=== PATIENT | female | born 1945 | race Caucasian/White ===

== ENCOUNTER 2017-05-21 10:24 | Emergency (ER) | payer MEDICARE ==
[~2017-05-21] VITALS: Ht 170.2 cm; Wt 88.6 kg
[2017-05-21] MEDS ORDERED: ULTRAM50 MG PO (11:10)
[2017-05-21] MEDS ORDERED: LOSARTAN POTASS25 MG (11:10)
[2017-05-21] MEDS ORDERED: SODIUM CHLORIDE 0.9% 1000ML 1,000 ML IV SCH (11:15)
[2017-05-21] MEDS ORDERED: ONDANSETRON HCL INJ 2 MG/ML VIAL IV ONE (12:00)
[2017-05-21] MEDS ORDERED: KCL 20MEQ/.9 SOD CHL 1,000 ML IV ONE (14:45)
[2017-05-21] MEDS ORDERED: ONDANSETRON HCL 4 MG ORAL DISINTEGRATING TAB PO ONE (16:00)
[2017-05-21 16:52] VITALS: BP 135/74
[2017-05-21] MEDS ORDERED: LOSARTAN POTASS25 MG PO (17:00)
[2017-05-21] MEDS ORDERED: HYDROCHLOROTHIA25 MG PO (17:00)
[2017-05-21 17:01] VITALS: BP 135/74
[2017-05-21 20:00] VITALS: BP 146/68
[2017-05-22] VITALS (8 sets, daily range): BP systolic 124–190; BP diastolic 59–80
[2017-05-22] MEDS: HYDRALAZINE HCL 20 MG/ML VIAL IV PRN ×2 (00:03→16:35)
[2017-05-22] MEDS: MORPHINE SULFATE 2 MG/ML SYR IV PRN (00:03)
[2017-05-22 06:48] LABS: BASOPHILS % 0.6 % (0.0-1.0); EOSINOPHILS # (AUTO) 0.1 (0.0-0.4); EOSINOPHILS % 2.4 % (0.0-6.0); HEMOGLOBIN 11.8 g/dL (12.0-16.0); LYMPHOCYTES # (AUTO) 2.1 (1.0-3.2); LYMPHOCYTES % 39.1 % (18.0-39.1); MEAN CORPUSCULAR HEMOGLOBIN 31.1 pg (28-32); MEAN CORPUSCULAR HGB CONC 33.7 g/dL (31-35); MEAN CORPUSCULAR VOLUME 92.3 fL (81-99); MONOCYTES # (AUTO) 0.5 (0.2-0.8); MONOCYTES % 9.3 % (4.4-11.3); NEUTROPHILS # (AUTO) 2.6 (2.1-6.9); PLATELET COUNT 185 x10e3/uL (140-360); RED BLOOD COUNT 3.79 x10e6/uL (3.6-5.1); RED CELL DISTRIBUTION WIDTH 13.2 % (11.7-14.4)
[2017-05-22 07:14] LABS: ANION GAP 6.9 mmol/L (8-16); BLOOD UREA NITROGEN 8 mg/dL (7-26); BUN/CREATININE RATIO 11 (6-25); CALCIUM 8.5 mg/dL (8.4-10.2); CARBON DIOXIDE 25 mmol/L (22-29); CHLORIDE 112 mmol/L (98-107); CREATININE, SERUM 0.71 mg/dL (0.57-1.11); EST GLOMERULAR FILTRATION RATE > 60 ML/MIN (60-); GLUCOSE 118 mg/dL (74-118); POTASSIUM 3.9 mmol/L (3.5-5.1); SODIUM 140 mmol/L (136-145)
[2017-05-22] MEDS: LOSARTAN POTASSIUM 25 MG TAB PO SCH (08:10)
[2017-05-22] MEDS: HYDROCHLOROTHIAZIDE 25 MG TAB PO SCH (08:10)
[2017-05-22 12:39] LABS: ALBUMIN 3.1 g/dL (3.5-5.0); BILIRUBIN,DIRECT 0.2 mg/dL (0.0-5.0)
--- NOTE | 2017-05-22 14:49 | History and Physical ---
PRIMARY CARE PROVIDER: Dr. Sherwin Cramer at the [facility]. CHIEF COMPLAINT: Right-sided abdominal pain. HISTORY OF PRESENT ILLNESS: Ms. Cao is a 72-year-old lady who has had right-sided abdominal pain that started in the right lower quadrant. Has radiated some to the right flank and right upper quadrant for the last 5 or 6 days. She was seen in clinic at the [facility] a couple of days ago. Had x-rays and lab work done. Has not followed up. Was seen yesterday at the urgent care [facility] where she had a CT scan of the abdomen which was reportedly normal. The patient was admitted from there for observation due to the severe pain with nausea and vomiting. REVIEW OF SYSTEMS: She denies fever, chills or weight loss. She denies sinus congestion or sore throat. She denies chest pain or palpitations. She denies shortness of breath, wheezing or cough. She has abdominal pain on the right side mainly in the right lower quadrant but also radiating into the right upper quadrant and right flank with some nausea and vomiting. She denies diarrhea or melena. She denies dysuria. She denies joint pain or swelling, although she has had a previous back injury many years ago. She denies bleeding or bruising. She denies headache, vertigo or loss of consciousness. She denies depression, agitation, homicidal or suicidal ideation. PAST MEDICAL HISTORY: Significant for hypertension for which she takes losartan 50 mg daily and hydrochlorothiazide 12.5 mg daily. She has a history of a cholecystectomy and hysterectomy. The cholecystectomy was done in 2014, the hysterectomy many years ago and a right total knee replacement done a few years ago. ALLERGIES: SHE HAS A STATED ALLERGY TO CODEINE. FAMILY HISTORY: Remarkable for hypertension. SOCIAL HISTORY: The patient is . Trinidadian is her primary language. She does not smoke, drink or use illegal drugs. She is generally independently functioning. PHYSICAL EXAMINATION PSYCHIATRIC: She is alert and oriented times 3 with normal mood and affect. CONSTITUTIONAL: She has a normal body habitus. She is in no acute distress. VITAL SIGNS: Blood pressure 154/70. Pulse 74 and regular. Respiratory rate 18. O2 sat 99%. HEENT: Head is atraumatic. Her eyes are anicteric with clear conjunctivae. Ears and nares are without erythema or discharge. Oropharynx is clear. NECK: Supple, no mass or thyromegaly. LYMPHATIC SYSTEM: She has no palpable cervical, axillary or inguinal adenopathy. CARDIOVASCULAR: Her heart has a regular rate and rhythm without murmur or extra heart sound. She has no carotid bruit. She has no peripheral edema. She has palpable dorsal pedal pulses. RESPIRATORY: The lungs are clear to auscultation and percussion with normal respiratory effort. GASTROINTESTINAL: Abdomen is soft. She has very minimal to mild tenderness in the right lower quadrant without rebound or guarding. No tenderness in the right upper quadrant or the right flank. No tenderness on the left side of the abdomen. She has normal bowel sounds present, and no hepatosplenomegaly or masses are palpable. CUTANEOUS: Her skin is warm and dry to touch with no rash or skin breakdown. MUSCULOSKELETAL: Her joints are in normal alignment without erythema or swelling. She has no calf tenderness. NEUROLOGIC: Exam is nonfocal with intact cranial nerves and no motor or sensory deficits. DIAGNOSTIC STUDIES: CT scan of the abdomen was reportedly normal. Her EKG is normal. Her chemistry shows normal electrolytes, CO2 25, creatinine 0.71 and BUN 8 for a normal GFR. Calcium 8.5. Glucose 118. Her CBC shows a white count of 5.37 with a normal differential. Hemoglobin 11.8, hematocrit 35.0 and platelet count 185,000. IMPRESSION AND PLAN 1. Right lower quadrant abdominal pain with a negative CT scan. Possibly radicular pain from a previous lumbar back injury. Possible herniated disk with radiculopathy. Will check an MRI scan of her spine to address that. Will also have our radiologist review the CT scan of her abdomen. 2. Anemia, normocytic anemia. Will check fecal occult blood test and iron levels. 3. Hypertension. Continue losartan and hydrochlorothiazide plus p.r.n. IV hydralazine. 4. For prophylaxis, the patient will be using SCDs for DVT prophylaxis and Pepcid for GI prophylaxis. Job#: [id number]
[2017-05-22] MEDS: FAMOTIDINE 20 MG TAB PO SCH (16:42)
[2017-05-22] MEDS: ACETAMINOPHEN 325 MG TAB PO PRN (20:10)
[2017-05-23] VITALS (8 sets, daily range): BP systolic 121–148; BP diastolic 59–78
[2017-05-23 06:29] LABS: BASOPHILS # (AUTO) 0.1 (0.0-0.1); BASOPHILS % 0.9 % (0.0-1.0); EOSINOPHILS # (AUTO) 0.2 (0.0-0.4); EOSINOPHILS % 3.1 % (0.0-6.0); HEMATOCRIT 36.7 % (34.2-44.1); HEMOGLOBIN 12.2 g/dL (12.0-16.0); LYMPHOCYTES # (AUTO) 2.2 (1.0-3.2); LYMPHOCYTES % 38.6 % (18.0-39.1); MEAN CORPUSCULAR HEMOGLOBIN 30.7 pg (28-32); MEAN CORPUSCULAR HGB CONC 33.2 g/dL (31-35); MEAN CORPUSCULAR VOLUME 92.2 fL (81-99); MONOCYTES # (AUTO) 0.6 (0.2-0.8); MONOCYTES % 10.7 % (4.4-11.3); NEUTROPHILS # (AUTO) 2.7 (2.1-6.9); NEUTROPHILS % 46.5 % (38.7-80.0); PLATELET COUNT 187 x10e3/uL (140-360); RED BLOOD COUNT 3.98 x10e6/uL (3.6-5.1); RED CELL DISTRIBUTION WIDTH 13.3 % (11.7-14.4)
[2017-05-23 06:47] LABS: ANION GAP 8.6 mmol/L (8-16); BLOOD UREA NITROGEN 11 mg/dL (7-26); BUN/CREATININE RATIO 14 (6-25); CALCIUM 8.8 mg/dL (8.4-10.2); CARBON DIOXIDE 27 mmol/L (22-29); CHLORIDE 106 mmol/L (98-107); CREATININE, SERUM 0.78 mg/dL (0.57-1.11); EST GLOMERULAR FILTRATION RATE > 60 ML/MIN (60-); GLUCOSE 126 mg/dL (74-118); LIPASE 30 U/L (8-78); MAGNESIUM 1.8 MG/DL (1.3-2.1); POTASSIUM 3.6 mmol/L (3.5-5.1); SODIUM 138 mmol/L (136-145)
[2017-05-23 07:07] LABS: THYROID STIMULATING HORMONE 1.569 uIU/mL (0.350-4.940)
[2017-05-23] MEDS: FAMOTIDINE 20 MG TAB PO SCH ×2 (07:42→16:20)
[2017-05-23] MEDS: HYDROCHLOROTHIAZIDE 25 MG TAB PO SCH (09:25)
[2017-05-23] MEDS: LOSARTAN POTASSIUM 25 MG TAB PO SCH (09:25)
[2017-05-23] MEDS: ACETAMINOPHEN 325 MG TAB PO PRN (13:41)
[2017-05-23] MEDS ORDERED: GABAPENTIN 300 MG CAP PO ONE (16:00)
--- NOTE | 2017-05-23 18:25 | Diagnostic Imaging Report ---
History: Back pain Comparison studies: None Technique: Sagittal, coronal and axial T2 , sagittal T1 and IR, axial spin density oblique. Intravenous contrast: None Findings: Number of lumbar vertebral bodies:5 Alignment: Mild grade 1 retrolisthesis of L5 over S1.No scoliosis. Soft tissues: No T2 hyperintense inflammatory changes. 2 cm left adnexal cyst, better seen on recent CT abdomen. Paraspinal muscles: Mild fatty infiltration of the lumbosacral paraspinal musculature.. Lower thoracic cord:Normal in signal and morphology. The tip of the conus is at L1. Cauda equina: No masses. No arachnoiditis. Vertebrae: Normal in height and signal intensity. No compression fractures, infection or neoplasm. Degenerative changes: Partially visualized right central disc protrusion at T12-L1 with impression on the anterior thecal sac results in mild canal stenosis. L1-L2: No abnormalities. L2-L3: No abnormalities. L3-L4: Mild bilateral facet hypertrophy with trace of fluid at the facet joints. Patent canal and foramina. L4-L5: Mild diffuse disc bulge, moderate facet hypertrophy and ligamentum flavum thickening results in mild canal stenosis without significant foraminal narrowing. Trace of fluid at the bilateral facet joint with mild periarticular inflammatory changes. L5-S1: Disc degeneration with decreased T2 signal and intervertebral space. Mild diffuse disc bulge mild facet hypertrophy without significant canal stenosis, mild left and moderate right foraminal narrowing. Additional findings: None IMPRESSION: Moderate right and mild left foraminal narrowing at L5-S1 secondary to degenerative changes. Moderate facet hypertrophy with periarticular inflammatory changes and synovitis at L4-L5. Right central disc protrusion at T12-L1 results in mild canal stenosis and impression of the anterior thecal sac. Other mild degenerative changes as described above Signed by: DR Jm Jha M.D. on 05/23/2017 6:21 PM
[2017-05-24 00:16] VITALS: BP 123/60
[2017-05-24 04:00] VITALS: BP 124/67
[2017-05-24] MEDS: MORPHINE SULFATE 2 MG/ML SYR IV PRN (05:34)
[2017-05-24 06:17] LABS: BASOPHILS % 0.6 % (0.0-1.0); EOSINOPHILS # (AUTO) 0.2 (0.0-0.4); EOSINOPHILS % 2.7 % (0.0-6.0); HEMATOCRIT 37.6 % (34.2-44.1); HEMOGLOBIN 12.7 g/dL (12.0-16.0); LYMPHOCYTES # (AUTO) 1.9 (1.0-3.2); MEAN CORPUSCULAR HEMOGLOBIN 30.6 pg (28-32); MEAN CORPUSCULAR HGB CONC 33.8 g/dL (31-35); MEAN CORPUSCULAR VOLUME 90.6 fL (81-99); MONOCYTES # (AUTO) 0.6 (0.2-0.8); MONOCYTES % 10.2 % (4.4-11.3); NEUTROPHILS # (AUTO) 3.5 (2.1-6.9); NEUTROPHILS % 56.2 % (38.7-80.0); PLATELET COUNT 188 x10e3/uL (140-360); RED BLOOD COUNT 4.15 x10e6/uL (3.6-5.1); RED CELL DISTRIBUTION WIDTH 13.2 % (11.7-14.4)
[2017-05-24 06:33] LABS: ANION GAP 10.6 mmol/L (8-16); BLOOD UREA NITROGEN 13 mg/dL (7-26); BUN/CREATININE RATIO 17 (6-25); CALCIUM 9.1 mg/dL (8.4-10.2); CARBON DIOXIDE 26 mmol/L (22-29); CHLORIDE 107 mmol/L (98-107); CREATININE, SERUM 0.78 mg/dL (0.57-1.11); EST GLOMERULAR FILTRATION RATE > 60 ML/MIN (60-); GLUCOSE 137 mg/dL (74-118); POTASSIUM 3.6 mmol/L (3.5-5.1); SODIUM 140 mmol/L (136-145)
[2017-05-24 08:00] VITALS: BP 138/78
[2017-05-24] MEDS ORDERED: GABAPENTIN 300 MG CAP PO SCH (09:00)
[2017-05-24] MEDS ORDERED: CYANOCOBALAMIN 1,000 MCG TAB PO SCH (09:00)
[2017-05-24] MEDS: FAMOTIDINE 20 MG TAB PO SCH (09:52)
[2017-05-24] MEDS: LOSARTAN POTASSIUM 25 MG TAB PO SCH (09:53)
[2017-05-24] MEDS: HYDROCHLOROTHIAZIDE 25 MG TAB PO SCH (09:53)
[2017-05-24] MEDS ORDERED: GABAPENTIN300 MG PO (14:48)
[2017-05-24] MEDS ORDERED: MOTRIN200 MG PO (14:48)
[2017-05-24] MEDS ORDERED: CYCLOBENZAPRINE5 MG PO (14:48)
[2017-05-24] MEDS ORDERED: VITAMIN B-121000 MCG PO (14:48)
[2017-05-24] MEDS ORDERED: FAMOTIDINE20 MG PO (14:48)
[2017-05-24] MEDS ORDERED: IBUPROFEN 600 MG TAB PO NR (15:00)
--- NOTE | 2017-05-24 21:26 | Discharge Summary ---
ADMISSION DIAGNOSES: 1. Right lower quadrant abdominal pain. 2. Anemia. 3. Hypertension. DISCHARGE DIAGNOSES: 1. Right lower quadrant abdominal pain. 2. Anemia. 3. Hypertension. 4. Right lower quadrant pain, resolved. HISTORY: Patient has a history of hypertension, cholecystectomy, hysterectomy, and right total knee replacement. HOSPITAL COURSE: A 72-year-old female who had right-sided abdominal pain that started in the right lower quadrant. some of the pain radiated to the right flank for the last 5 or 6 days. She was seen in the [facility] a couple of days ago, had x-rays and lab work done and has not followed up with those results. She then went to an urgent care prior to coming to [facility] where she had a CAT scan of the abdomen done. After getting reports of the CAT scan, everything was negative. The patient was then admitted to [facility] for obs due to severe pain with nausea and vomiting. Upon seeing the patient at [facility], the patient's nausea and vomiting had resolved and all that was left was the pain, which she described in her hip that radiated to the back on the right side. MRI was completed, which showed moderate right and mild left foraminal narrowing at L5-S1 secondary to degenerative changes and moderate facet hypertrophy with periarticular inflammatory changes and synovitis at L4-L5 with the right central disk protrusion at T12-L1 results in mild canal stenosis and impression of the anterior thecal sac. Vital signs stable. Labs within normal limits. Patient was discharged home on Flexeril, gabapentin, ibuprofen. Per Dr. Lubin's request, patient is to follow up with ortho if these medications do not help the pain. Son was at bedside throughout discharge, so he is aware of the recommendations as well. Patient will follow up with primary care in 1 to 2 weeks. Dictated by Yoli Hurt NP MAHIN LUBIN MD Job#: [id number]
== END 2017-05-24 15:45 | disposition home or self-care (01) ==
LOC: FSED 10:24 → ERHOLD 14:55 → IMCU 16:06
PROVIDERS: ADMIT Internal Medicine; ATTEND Internal Medicine
DX: R10.31 Right lower quadrant pain (principal); I10 Essential (primary) hypertension; M51.36 Other intervertebral disc degeneration, lumbar region; M51.26 Other intervertebral disc displacement, lumbar region; D64.9 Anemia, unspecified
CPT/HCPCS: 36415 ×3; 72148; 80048 ×3; 80076; 82607; 82746; 83540; 83690; 83735; 84443; 84466; 85025 ×3; 93005; 97116; 97162; 99284; G0378 ×4; G8978; G8979; J0360 ×2; J2270 ×2; J2405; J7030 ×2

== ENCOUNTER 2017-08-08 12:39 | Inpatient (IN) | payer MEDICARE ==
[~2017-08-08] VITALS: Ht 170.2 cm; Wt 89.8 kg
[~2017-08-08 12:39] MED LIST: CYCLOBENZAPRINE5 MG PO; FAMOTIDINE20 MG PO; GABAPENTIN300 MG PO; HYDROCHLOROTHIA25 MG PO; LOSARTAN POTASS25 MG; LOSARTAN POTASS25 MG PO; MOTRIN200 MG PO; ULTRAM50 MG PO; VITAMIN B-121000 MCG PO
--- OUTSIDE RECORDS SUMMARY | 2017-08-08 12:42 | XMS REPORT ---
Author Author [facility] Address Unknown Phone Unavailable Care Team Providers Care Software Sales Consultant Name Role Phone LILIAMPADILLAMAHIN Unavailable Unavailable Problems This patient has no known problems. Allergies, Adverse Reactions, Alerts This patient has no known allergies or adverse reactions. Medications This patient has no known medications. Results Test Description Test Time Test Comments Text Results Atomic Results Result Comments MRI SPINE LUMBAR WO [facility] [address] [address] Patient Name: KAYLEIGH REZA MR #: [id number] : 1945 Age/Sex: 72/F Req # : [id number] Adm Physician: MAHIN RICKETTS MD Ordered by: MAHIN RICKETTS MD Report #: [id number] Location: [facility] Room/Bed: [address] [place] [address] _ Procedure: [id number] MRI/MRI SPINE LUMBAR WO Exam Date: Exam Time: REPORT STATUS: Signed History: Back pain Comparison studies: None Technique: Sagittal, coronal and axial T2 , sagittal T1 and IR, axial spin density oblique. Intravenous contrast: None Findings: Number of lumbar vertebral bodies:5 Alignment: Mild grade 1 retrolisthesis of L5 over S1.No scoliosis. Soft tissues: No T2 hyperintense inflammatory changes. 2 cm left adnexal cyst, better seen on recent CT abdomen. Paraspinal muscles: Mild fatty infiltration of the lumbosacral paraspinal musculature.. Lower thoracic cord:Normal in signal and morphology. The tip of the conus is at L1. Cauda equina: No masses. No arachnoiditis. Vertebrae: Normal in height and signal intensity. No compression fractures, infection or neoplasm. Degenerative changes: Partially visualized right central disc protrusion at T12-L1 with impression on the anterior thecal sac results in mild canal stenosis. L1-L2: No abnormalities. L2-L3: No abnormalities. L3-L4: Mild bilateral facet hypertrophy with trace of fluid at the facet joints. Patent canal and foramina. L4-L5: Mild diffuse disc bulge, moderate facet hypertrophy and ligamentum flavum thickening results in mild canal stenosis without significant foraminal narrowing. Trace of fluid at the bilateral facet joint with mild periarticular inflammatory changes. L5-S1: Disc degeneration with decreased T2 signal and intervertebral space. Mild diffuse disc bulge mild facet hypertrophy without significant canal stenosis, mild left and moderate right foraminal narrowing. Additional findings: None IMPRESSION: Moderate right and mild left foraminal narrowing at L5-S1 secondary to degenerative changes. Moderate facet hypertrophy with periarticular inflammatory changes and synovitis at L4-L5. Right central disc protrusion at T12-L1 results in mild canal stenosis and impression of the anterior thecal sac. Other mild degenerative changes as described above Signed by: DR Jm Jha M.D. on 05/23/2017 6:21 PM Dictated By: JM NANCE MD 20 Transcribed By: GILBERT on 05/23/171820 COPY TO: MAHIN RICKETTS MD
--- OUTSIDE RECORDS SUMMARY | 2017-08-08 12:42 | XMS REPORT | Continuity of Care Document ---
Author Author [facility] Organization [facility] Address [address] [place] [address] Phone Unavailable Care Team Providers Care Vault Keeper Name Role Phone NONSTAFF PCP Unavailable Insurance Providers Guarantor Kayleigh Cao Address [address] [place] [address] [facility] Medicare Advantage Policy Number [id number] Subscriber's Name Kayleigh Cao Relationship 18 Self / Same As Patient Effective Date 10 Advance Directives Directive Response Recorded Date/Time Does the patient have an advance directive? No 05/21/17 4:41pm If yes, [facility]? No 05/21/17 4:41pm If not on file with [facility] will patient provide a copy? No 05/21/17 4:41pm Do you have a Directive to Physician? No 05/21/17 1:37pm Do you have a Medical Power of Upper And Bottom Lacer Hand? No 05/21/17 1:37pm Do you have an out of hospital Do Not Resuscitate Order? No 05/21/17 1:37pm Do you have any special needs we should be aware of? No 05/21/17 1:37pm Do you have a support person here with you today? Yes 05/21/17 1:37pm Did patient receive Notice of Privacy Practices? Yes 05/21/17 1:37pm Did patient receive patient rights and responsibilities? Yes 05/21/17 1:37pm Problems Medical Problem Onset Date Status Abdominal pain Unknown Vomiting Unknown Medications Current Home Medications Medication Dose Units Route Directions Days Qty Instructions Start Date Cyanocobalamin (Vitamin B-12) 1,000 Mcg Tab 1,000 Mcg Oral Daily 30 Days 05/24/17 Cyclobenzaprine Hcl (Flexeril) 5 Mg Tablet 5 Mg Oral Every 8 Hours as needed for Pain 30 Days 05/24/17 Famotidine 20 Mg Tab 20 Mg Oral Twice Daily Before Meals 30 Days Gabapentin 300 Mg Capsule 300 Mg Oral Twice A Day 30 Days 05/24/17 Hydrochlorothiazide 25 Mg Tablet 12.5 Mg Oral Daily 30 Tab Ibuprofen (Motrin) 200 Mg Tab 600 Mg Oral Every 12 Hours as needed for Pain 30 Days 05/24/17 Losartan Potassium 25 Mg Tablet 50 Tab Oral Daily Past Home Medications Medication Directions Ordered Status Losartan Potassium 25 Mg Tablet, Unknown Dose Discontinued Tramadol Hcl (Ultram) 50 Mg Tablet, Unknown Dose Oral Discontinued Social History Social History Problem Response Recorded Date/Time Onset Date Status Hx Psychiatric Problems No 05/21/2017 4:41pm Not Applicable Not Applicable Hx Eating Disorder No 05/21/2017 4:41pm Not Applicable Not Applicable Hx Substance Use Disorder No 05/21/2017 4:41pm Not Applicable Not Applicable Hx Depression No 05/21/2017 4:41pm Not Applicable Not Applicable Hx Alcohol Use No 05/21/2017 4:41pm Not Applicable Not Applicable Hx Substance Use Treatment No 05/21/2017 4:41pm Not Applicable Not Applicable Hx Physical Abuse No 05/21/2017 4:41pm Not Applicable Not Applicable Smoking Status Start Date Stop Date Never Smoker Hospital Discharge Instructions No hospital discharge instruction information available. Plan of Care Discharge Date 05/24/17 3:45pm Disposition HOME, SELF-CARE Instructions/Education Provided Abdominal Pain - Adult Prescriptions See Medication Section Additional Instructions/Education regular diet Activities as tolerated Follow up with PCP in 1-2 weeks Functional Status Query Response Date Recorded FUNCTIONAL STATUS . May 24, 2017 12:41pm Assistive Devices None May 21, 2017 4:52pm Ambulation Ability Standby Assistance May 21, 2017 4:52pm Toileting Ability Standby Assistance May 21, 2017 4:52pm Allergies, Adverse Reactions, Alerts Allergen Type Severity Reaction Status Last Updated Codeine Allergy Mild vomiting Active 05/21/17 Immunizations No immunization information available. Vital Signs Acute Vital Signs Vital Response Date/Time Temperature (Fahrenheit) 96.4 degrees F (97.6 - 99.5) 05/24/2017 8:00am Pulse Pulse Rate (adult) 74 bpm (60 - 90) 05/24/2017 8:00am Respiratory Rate 18 bpm (12 - 24) 05/24/2017 8:00am Blood Pressure 138/78 mm Hg 05/24/2017 8:00am Height 5 ft 7 in 05/21/2017 10:25am Weight 195.31 lb 05/24/2017 12:17am Body Mass Index 30.6 kg/m^2 05/24/2017 12:17am Results Laboratory Results Test Name Result Units Flags Reference Collection Date/Time Result Date/ Time Comments White Blood Count 6.19 x10e3/uL 4.8-10.8 05/24/2017 6:05am 05/24/2017 6 :19am Red Blood Count 4.15 x10e6/uL 3.6-5.1 05/24/2017 6:05am 05/24/2017 6: 19am Hemoglobin 12.7 g/dL 12.0-16.0 05/24/2017 6:05am 05/24/2017 6:19am Hematocrit 37.6 % 34.2-44.1 05/24/2017 6:05am 05/24/2017 6:19am Mean Corpuscular Volume 90.6 fL 81-99 05/24/2017 6:05am 05/24/2017 6: 19am Mean Corpuscular Hemoglobin 30.6 pg 28-32 05/24/2017 6:05am 05/24/2017 6:19am Mean Corpuscular Hemoglobin Concent 33.8 g/dL 31-35 05/24/2017 6:05am 05/24/2017 6:19am Red Cell Distribution Width 13.2 % 11.7-14.4 05/24/2017 6:05am 2017 6:19am Platelet Count 188 x10e3/uL 140-360 05/24/2017 6:05am 05/24/2017 6: 19am Neutrophils (%) (Auto) 56.2 % 38.7-80.0 05/24/2017 6:05am 05/24/2017 6: 19am Lymphocytes (%) (Auto) 30.0 % 18.0-39.1 05/24/2017 6:0505/24/2017 6: 19am Monocytes (%) (Auto) 10.2 % 4.4-11.3 05/24/2017 6:05am 05/24/2017 6: 19am Eosinophils (%) (Auto) 2.7 % 0.0-6.0 05/24/2017 6:0505/24/2017 6: 19am Basophils (%) (Auto) 0.6 % 0.0-1.0 05/24/2017 6:0505/24/2017 6:19am IM GRANULOCYTES % 0.3 % 0.0-1.0 05/24/2017 6:0505/24/2017 6:19am Neutrophils # (Auto) 3.5 2.1-6.9 05/24/2017 6:0505/24/2017 6:19am Lymphocytes # (Auto) 1.9 1.0-3.2 05/24/2017 6:05am 05/24/2017 6:19am Monocytes # (Auto) 0.6 0.2-0.8 05/24/2017 6:0505/24/2017 6:19am Eosinophils # (Auto) 0.2 0.0-0.4 05/24/2017 6:05am 05/24/2017 6:19am Basophils # (Auto) 0.0 0.0-0.1 05/24/2017 6:0505/24/2017 6:19am Absolute Immature Granulocyte (auto 0.02 x10e3/uL 0-0.1 05/24/2017 6: 0505/24/2017 6:19am Sodium Level 140 mmol/L 136-145 05/24/2017 6:0505/24/2017 6:35am Potassium Level 3.6 mmol/L 3.5-5.1 05/24/2017 6:05am 05/24/2017 6:35am Chloride Level 107 mmol/L 98-107 05/24/2017 6:05am 05/24/2017 6:35am Carbon Dioxide Level 26 mmol/L 22-29 05/24/2017 6:0505/24/2017 6: 35am Anion Gap 10.6 mmol/L 8-16 05/24/2017 6:05am 05/24/2017 6:35am Blood Urea Nitrogen 13 mg/dL 7-05/24/2017 6:0505/24/2017 6:35am Creatinine 0.78 mg/dL 0.57-1.11 05/24/2017 6:05am 05/24/2017 6:35am BUN/Creatinine Ratio 17 6-05/24/2017 6:0505/24/2017 6:35am Estimat Glomerular Filtration Rate > 60 ML/MIN 60- 05/24/2017 6:05 6:35am Ranges were taken from the National Kidney Disease Education Program and the National Kid[employer] Foundation literature. Reference ranges: 60 or greater: Normal 16-59 (for 3 consecutive months): Chronic kidney disease 15 or less: Kidney failure Glucose Level 137 mg/dL H 74-118 05/24/2017 6:0505/24/2017 6:35am Calcium Level 9.1 mg/dL 8.4-10.2 05/24/2017 6:05am 05/24/2017 6:35am Magnesium Level 1.8 MG/DL 1.3-2.1 05/23/2017 6:00am 05/23/2017 6:48am Iron Level 101 ug/dL 50-170 05/22/2017 6:0505/22/2017 12:40pm Total Iron Binding Capacity 291 ug/dL 261-478 05/22/2017 6:052017 12:40pm Percent Iron Saturation 35 % 15-50 05/22/2017 6:0505/22/2017 12: 40pm Transferrin 208 mg/dL 180-382 05/22/2017 6:0505/22/2017 12:40pm Total Bilirubin 0.6 mg/dL 0.2-1.2 05/22/2017 6:0505/22/2017 1:30pm Direct Bilirubin 0.2 mg/dL 0.0-5.0 05/22/2017 6:05am 05/22/2017 12: 40pm Aspartate Amino Transf (AST/SGOT) 23 IU/L 5-34 05/22/2017 6:05am 2017 12:40pm Alanine Aminotransferase (ALT/SGPT) 20 IU/L 0-55 05/22/2017 6:05am 12:40pm Total Protein 5.7 g/dL L 6.5-8.1 05/22/2017 6:05am 05/22/2017 12:40pm Albumin 3.1 g/dL L 3.5-5.0 05/22/2017 6:05am 05/22/2017 12:40pm Alkaline Phosphatase 82 IU/L 40-150 05/22/2017 6:05am 05/22/2017 12: 40pm Lipase 30 U/L 8-78 05/23/2017 6:00am 05/23/2017 6:48am Vitamin B12 Level 51 pg/mL L 213-816 05/22/2017 6:05am 05/22/2017 1: 02pm Folate 17.3 ng/mL H 7.0-15.4 05/22/2017 6:05am 05/22/2017 1:18pm Thyroid Stimulating Hormone (TSH) 1.569 uIU/mL 0.350-4.940 05/23/2017 6: 00am 05/23/2017 7:07am Procedures Procedure Status Date Provider(s) Magnetic resonance imaging of lumbar spine without contrast Active 05/23/17 MAHIN RICKETTS MD Encounters Encounter Location Arrival/Admit Date Discharge/Depart Date Attending Provider Discharged Inpatient (obs) [facility] 05/21/17 2:55pm 3:45pm MAHIN RICKETTS MD
[2017-08-08] MEDS ORDERED: METOPROLOL SUCCINATE 50 MG TAB XL PO SCH (13:15)
[2017-08-08] MEDS ORDERED: ASPIRIN 81 MG ENTERIC COATED PO SCH (13:21)
[2017-08-08 13:54] VITALS: BP 162/84
[2017-08-08 14:07] VITALS: BP 162/84
[2017-08-08 16:39] VITALS: BP 128/74
[2017-08-08] MEDS ORDERED: CLONIDINE HCL 0.1 MG TAB PO PRN (17:30)
[2017-08-08] MEDS ORDERED: ACETAMINOPHEN 325 MG TAB PO PRN (17:45)
--- NOTE | 2017-08-08 18:40 | Diagnostic Imaging Report ---
EXAMINATION: MRI of the brain without contrast. HISTORY: Headache, left arm weakness and left facial numbness COMPARISON: None. TECHNIQUE: Sagittal T2; axial DWI, T2, FLAIR, T1-IR, T2 gradient echo; coronal FLAIR. IMAGE QUALITY: Adequate. FINDINGS: Parenchyma: 1. Scatter and mildly confluent supratentorial white matter T2 and FLAIR hyperintense foci, most likely nonspecific chronic microvascular ischemic changes. 2. No mass, hemorrhage, acute or chronic infarcts. Skull: Unremarkable. Vessels: Expected flow voids present in the major arteries and dural sinuses. Extra-axial spaces: No abnormal signal intensity or mass effect. Small approximately 2.5 cm left superior frontal convexity arachnoid cyst without associated significant mass effect or abnormal signal intensity in the underlying parenchyma. Small subdural hygromas underneath the tentorium without mass effect. Brain volume: Within normal limits for age. Ventricles: No hydrocephalus or displacement. Foramen magnum: Unremarkable. Sella: Unremarkable. Paranasal / mastoid sinuses: No significant inflammatory disease. IMPRESSION: 1. No acute or chronic infarcts. 2. Mild chronic microvascular ischemic changes. 3. Incidentally noted benign left frontal arachnoid cyst without mass effect. Signed by: Dr. Raquel Villarreal M.D. on 08/08/2017 6:36 PM
[2017-08-08 19:00] LABS: CREATINE KINASE 33 IU/L (29-168)
[2017-08-08] MEDS ORDERED: METHYLPREDNISOLONE SOD SUCC 125 MG/2ML VIAL IV ONE (19:30)
[2017-08-08] MEDS ORDERED: PROMETHAZINE 12.5MG/ NACL 0.9% 12.5 MG/50 ML BAG IV ONE (19:30)
[2017-08-08] MEDS ORDERED: VALPROATE SOD INJ 500 MG in SODIUM CHLORIDE 0.9% 100 ML 100 ML IV ONE (19:30)
--- NOTE | 2017-08-08 19:41 | Consultation ---
DATE OF CONSULTATION: August 08, 2017 CARDIOLOGY CONSULTATION REASON FOR CONSULTATION: Chest pain. HISTORY OF PRESENT ILLNESS: Ms. Cao is a 72-year-old lady with a past medical history of hypertension, who presents to this institution after having left facial numbness, headache and left arm tingling. She reports that for the last several days she has been having episodic headache and now has a continuous pain on the top part of her head with a difference in facial sensation over the left side of her face with a very sensitive area in the left temporal region. She had some left arm tingling and left arm weakness that was intermittent earlier today, which prompted her to come to the outside free-standing emergency room. She had also been reporting of chest pain. She reports it as a lower sternal tightness discomfort that is episodic off and on for the last several days, occurring multiple times during the day. Patient would get up, ambulate, and would notice no association with ambulation. She reports the pain lasts maximally 5 minutes at a time and denies any associated nausea, vomiting, diaphoresis. She has had intermittent shortness of breath and reports that she has had a similar pain to this in the past approximately 5 years ago and had a negative stress test and this was attributed to her having high blood pressure. At the outside ER, cardiac enzymes were strongly negative with less than 0.015 troponin and MB of less than 1, and the EKG reveals normal sinus rhythm and no ST-T wave changes concerning for ischemia. She had a CAT scan done of the brain to evaluate her neurologic symptoms, and interestingly this revealed about a 2 cm cystic brain structure in the left side of her brain. We had a long discussion with the patient and family in terms of differential diagnosis of chest pain and the hesitation of being very aggressive from a cardiac standpoint in light of her recently discovered mass in her brain. PAST MEDICAL HISTORY 1. Hypertension. 2. Remote history of right Luna's palsy. 3. History of right eye cataract. 4. GERD, on Pepcid therapy. 5. DJD of the lumbar spine. PAST SURGICAL HISTORY 1. History of laparoscopic cholecystectomy. 2. History of hysterectomy. 3. History of prior knee surgery. FAMILY HISTORY: Mother in her 40s, was murdered. Father in his early age, unclear reasons. Does have a sister who is alive at 76, has lung cancer, heavy smoker, and has had a prior MA in the past. SOCIAL HISTORY: She is a lifelong nonsmoker, denies any alcohol or illicit drug use. ALLERGIES: INCLUDE CODEINE. HOME MEDICATIONS: Include 1. A vitamin B12 tablet daily. 2. Cyclobenzaprine 5 mg q.8 h. p.r.n. 3. Pepcid 20 mg b.i.d. 4. Gabapentin 300 mg b.i.d. 5. Hydrochlorothiazide 12.5 mg daily. 6. Ibuprofen 600 mg q.12 h. p.r.n. 7. Losartan 50 mg daily. REVIEW OF SYSTEMS GENERAL: Denies any fevers, chills or any weight changes. HEENT: Positive for headache. Denies any diplopia. Has chronically decreased vision in her right eye due to cataract. No sore throat, stuffy nose. RESPIRATORY: Denies any pleuritic component to the chest pain. No cough. Shortness of breath as above. CARDIOVASCULAR: As per HPI. Denies any subjective palpitations. Does have some dizziness with her neuro symptoms. No syncope. GI: Denies any abdominal pain. Does have history of GERD. Denies any bright red blood per rectum, melena, hematemesis. : Denies any dysuria, change in urinary frequency, pyuria. MUSCULOSKELETAL: Positive for transient left arm weakness and tingling in the left arm. HEMATOLOGIC: Denies any bruising or bleeding. ENDOCRINE: Denies any heat or cold intolerance. NEUROLOGIC: Positive for left facial tingling, left arm tingling and transient weakness. SKIN: No rashes. PHYSICAL EXAMINATION VITAL SIGNS: Height of 67 inches, weight of 198 pounds. BMI is 31. Temperature of 97.5, pulse of 69, respiratory rate of 18, blood pressure 128/74, O2 sat 99% on room air. IN GENERAL: This is a well-nourished, well-developed lady who is currently in no apparent distress. HEENT: Pupils are equally round and reactive to light. Extraocular movements are intact. Oropharynx is clear. There is some asymmetry in facial sensation in the upper, mid and lower face, left more than right. There does not appear to be any facial droop or muscle weakness at the present time. NECK: No carotid bruits and no JVD. CARDIOVASCULAR: Regular rate and rhythm. Normal S1 and S2. A soft 1/6 systolic murmur at the left lower sternal border. LUNGS: Clear to auscultation bilaterally with good air entry. ABDOMEN: Soft, nontender, nondistended, with normoactive bowel sounds. No hepatosplenomegaly. There is notable some slight left parasternal chest wall tenderness to palpation, and there is old laparoscopic cholecystectomy scar. BACK: No costovertebral angle tenderness. No spinal tenderness. No nuchal rigidity. NEUROLOGIC: There is left sensory deficit on the left side of her entire face. Peripheral sensation seems to be preserved, and strength seems to be symmetric in all 4 extremities. LABS: Reviewed from outside facility. Notable for troponin that is undetectable and MB less than 1. Chest x-ray is unremarkable. EKG reveals normal sinus rhythm, normal axis, and no ST-T wave changes concerning for ischemia. Brain CT reveals the left-sided mass as noted above. DIAGNOSES 1. New-onset left facial sensory deficit in the presence of a questionable brain tumor mass needing further investigation. 2. Chest pain with mixed features. 3. Hypertension. 4. Remote history of Luna's palsy. 5. Obesity. 6. Family history of coronary disease in her sister, who was a heavy smoker. PLAN/RECOMMENDATIONS 1. From a cardiovascular standpoint, will go ahead and cycle cardiac enzymes serially. 2. Will check echocardiogram to get a rough estimate of her left ventricular function. 3. At the present time, we are currently hesitant to be aggressive from a cardiac standpoint until further evaluation and management of her neurologic issues. 4. Will check her carotid duplex to evaluate carotid arteries. 5. Telemetry monitoring. 6. Will check liver profile, TSH, and provide aggressive risk-factor modification and medical therapy. 7. Will await neurologic input in the case. 8. Will continue to follow this patient with you and change course as clinical course dictates. At the present time, we are hesitant to proceed with any ischemic risk stratification with a stress test until we further investigate the brain issue. Job#: [id number] SANDIE
[2017-08-08] MEDS ORDERED: SODIUM CHLORIDE 0.9% 250ML 250 ML ONE (19:51)
[2017-08-08 20:00] VITALS: BP 156/79
[2017-08-08] MEDS: METOPROLOL TARTRATE 50 MG TAB PO SCH (20:45)
--- NOTE | 2017-08-08 21:34 | Consultation ---
DATE OF CONSULTATION: August 08, 2017 NEUROLOGY CONSULTATION HISTORY OF PRESENT ILLNESS: Ms. Cao is a 72-year-old [id number] woman with past medical history significant for hypertension and possible prior history of migraines who presented to [facility] on August 08, 2017 as a transfer from a free standing emergency center with a headache and chest pain. Beginning 2-3 days prior to admission, the patient experienced the onset of a headache which she describes as follows: The pain began behind the left eye and radiated to the vertex. The pain was described as sharp and is severe in intensity. Associated with headache is mild photophobia, nausea, and dizziness which is further described as lightheadedness. The patient does not report phonophobia or vomiting associated with the headache. On the night prior to admission, the patient took Tylenol and went to sleep. When she awoke on morning of admission, the patient continued to have a headache as described above as well as numbness over the left side of the face. Concerned, the patient went to a free standing emergency center for further evaluation. While in the free standing emergency center, the patient underwent a CT of the brain without contrast which reportedly showed a cyst. Ms. Cao was transferred to [facility] for a higher level of care. The patient reports that she has had headaches "for a while now". The patient does report a prior history of severe headaches, possibly migraines. REVIEW OF SYSTEMS: Chest pain and tightness, nausea, burning with urination, urinary frequency, headache, photophobia, and dizziness which is further described as lightheadedness. Otherwise the 12 point review of systems is negative. PAST MEDICAL HISTORY: Hypertension, multiple urinary tract infections, gastroesophageal reflux disease, remote history of anxiety attacks, possible prior history of migraines, and ovarian cyst. PAST SURGICAL HISTORY: Partial hysterectomy, cholecystectomy, right knee replacement. PAST HOSPITALIZATIONS: Surgeries and procedures as listed, and back pain and difficulty walking, childbirth x4. FAMILY HISTORY: The patient's paternal and maternal grandparents are . Their medical histories are unknown. The patient's father when she was [age] years old from tuberculosis. The patient's mother was murdered when Ms. Cao was 19 years old. The patient has one brother who is . He from liver cancer. The patient has one sister who had lung cancer. She is alive and in remission. Ms. Cao has a 2nd sister who has cervical cancer. The patient has 4 children. Her eldest daughter has cirrhosis which is suspected to be hereditary. Both of the patient's sons have hypertension. Her youngest daughter is healthy. SOCIAL HISTORY: The patient is a . She attended school through the 12th grade, but did not graduate from high school. Ms Cao is retired. 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 The patient does not report current or prior tobacco or recreational drug use. The patient does endorse occasional alcohol consumption (a amy). HOME MEDICATIONS: Cyanocobalamin 1000 mcg by mouth daily, cyclobenzaprine 5 milligrams by mouth every eight hours as needed for muscle spasm, Pepcid 25 mg by mouth twice daily before meals, gabapentin 300 mg by mouth twice daily, hydrochlorothiazide 12.5 mg. per mouth daily, ibuprofen 600 mg by mouth every 12 hours as needed for pain, losartan 50 milligrams by mouth daily. ALLERGIES: CODEINE CAUSES NAUSEA AND VOMITING. NO KNOWN FOOD ALLERGIES. NO KNOWN ALLERGIES TO LATEX. NO KNOWN ALLERGIES TO IODINE OR OTHER CONTRAST MATERIALS. PHYSICAL EXAMINATION: VITAL SIGNS: Height 67 inches, weight 198 pounds. BMI 31.0 kg per meter squared. Blood pressure 128/74 mmHg. Pulse 69 beats per minute. Respiratory rate 18 breaths per minute. Oxygen saturation 99% on room air. GENERAL: The patient is awake and alert, does not appear distressed. Lights are turned off and the volume on the television is low. HEENT: Normocephalic and atraumatic. Pupils are equal, round and reactive to light. Moist mucous membranes. NECK: Supple. No appreciable thyromegaly. No appreciable carotid bruits. CARDIOVASCULAR: S1 and S2. Regular rate and rhythm. No murmurs, rubs or gallops. RESPIRATORY: Clear to auscultation bilaterally. No wheezes, rhonchi or rales. EXTREMITIES: The skin is warm and dry. No clubbing, cyanosis or edema. The posterior tibial and dorsalis pedis pulses are 2+ and symmetric. SKIN: No rashes or lesions. NEUROLOGIC: Memory/attention: The patient is awake and alert. Oriented to person, place, time, and situation. CRANIAL NERVES: Cranial nerve I: Not tested. Cranial nerves II, III, IV, : Pupils are equal and round, react briskly to light (from 4 mm to 2 mm). Extraocular movements intact. No nystagmus. Cranial nerve V: Sensation to light touch is mildly diminished in the left C1 through V3 distributions. Sensation to pinprick is intact in the bilateral V1 through V3 distributions. Strength of the temporalis and masseter muscles is within normal limits. Cranial nerve VII: The face is symmetric, as are all facial movements. Strength is within normal limits. Cranial nerve VIII: Hearing is diminished to finger rub bilaterally. Cranial nerve IX and X: The soft palate elevates equally and symmetrically. Cranial nerve XI: Normal strength of the bilateral sternocleidomastoid and trapezius muscles. Cranial nerve XII: The tongue protrudes midline and moves symmetrically from side to side. STRENGTH: Bulk is normal, and strength is 5/5 in the bilateral deltoids, biceps, triceps, wrist flexors and extensors, finger flexors and extensors, intrinsic hand muscles, hip flexors, knee flexors and extensors, ankle dorsiflexion and plantar flexion, and intrinsic foot muscles. Tone is normal. DTRs: Deep tendon reflexes are 2+ and symmetric at the triceps, biceps, brachioradialis and patellas. Deep tendon reflexes are trace and symmetric at the Achilles. Plantar responses are flexor bilaterally. Absent clonus. SENSATION: Intact to light touch and pinprick in both arms and both legs. CEREBELLAR: [id number] and heel-ponce movements are intact without dysmetria or other impairment. Rapid alternating movements are intact. GAIT: Deferred. SPEECH: Spontaneous speech is normal without appreciable dysarthria or aphasia. Repetition is intact. INVOLUNTARY MOVEMENTS: None. PRONATOR DRIFT: None. DIAGNOSTIC STUDIES: MRI of the brain without contrast on 08/08/2017: On my review, there is no evidence of recent large territorial ischemia, hemorrhage, mass or mass affect. A left superior frontal convexity arachnoid cyst, measuring approximately 2.5 cm is observed. There is no significant mass affect or abnormal signal intensity of the underlying brain parenchyma. There are scattered T2 and flare hyper-intensities compatible with mild to moderate chronic small vessel ischemic disease. ASSESSMENT AND PLAN: Ms. Cao is a 72-year-old [id number] woman with past medical history significant for hypertension and possible prior history of migraines who presented to [facility] on August 08, 2017 with a headache and chest pain. The patient's headache and associated symptoms are described fully in the history of present illness. The patient's neurological examination is significant for mildly decreased sensation to light touch over the left V1 through V3 distributions. Otherwise, the neurological examination is nonfocal. The patient's diagnostic studies are reviewed and are documented above. Ms. 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 TREATMENT RECOMMENDATIONS ARE FOLLOWS: 1. Promethazine 12.5 mg IV once. 2. Methylprednisolone 125 mg IV once. 3. Valproic sodium 500 mg IV once. 4. These medications, when used in combination, are an effective treatment for status migrainosus. If necessary, all medicines may be repeated after six hours. 5. The left frontal arachnoid cyst is probably a developmental anomaly. The cyst is benign. No further evaluation or treatment is necessary. 6. Defer treatment of the remaining medical comorbidities to the primary and other services. Thank you for this consultation. I will continue to follow the patient while she remains in the hospital. TIME SPENT: 50 minutes. Job#: [id number] ANJELICA
[2017-08-09] VITALS (7 sets, daily range): BP systolic 112–149; BP diastolic 59–75
[2017-08-09] MEDS ORDERED: VALPROATE SOD INJ 500 MG in SODIUM CHLORIDE 0.9% 100 ML 100 ML IV PRN (02:00)
[2017-08-09 02:31] LABS: CREATINE KINASE 27 IU/L (29-168)
[2017-08-09 06:48] LABS: BASOPHILS % 0.2 % (0.0-1.0); HEMATOCRIT 38.1 % (34.2-44.1); LYMPHOCYTES # (AUTO) 1.2 (1.0-3.2); LYMPHOCYTES % 18.8 % (18.0-39.1); MEAN CORPUSCULAR HEMOGLOBIN 30.3 pg (28-32); MEAN CORPUSCULAR HGB CONC 34.1 g/dL (31-35); MEAN CORPUSCULAR VOLUME 88.8 fL (81-99); MONOCYTES # (AUTO) 0.1 (0.2-0.8); NEUTROPHILS % 79.5 % (38.7-80.0); PLATELET COUNT 203 x10e3/uL (140-360); RED BLOOD COUNT 4.29 x10e6/uL (3.6-5.1); RED CELL DISTRIBUTION WIDTH 12.8 % (11.7-14.4)
[2017-08-09 07:08] LABS: INR 1.15; PROTHROMBIN TIME 13.8 seconds (11.9-14.5)
[2017-08-09 07:30] LABS: ALBUMIN 3.2 g/dL (3.5-5.0); ALBUMIN/GLOBULIN RATIO 0.9 (0.8-2.0); ANION GAP 13.1 mmol/L (8-16); CALCIUM 9.5 mg/dL (8.4-10.2); CREATININE, SERUM 0.93 mg/dL (0.57-1.11); POTASSIUM 4.1 mmol/L (3.5-5.1)
[2017-08-09 07:42] LABS: CHOL/HDL RATIO 3.6 (3.0-3.6); MAGNESIUM 1.9 MG/DL (1.3-2.1)
[2017-08-09 08:02] LABS: THYROID STIMULATING HORMONE 0.494 uIU/mL (0.350-4.940)
[2017-08-09] MEDS: METOPROLOL TARTRATE 50 MG TAB PO SCH ×2 (08:49→21:00)
[2017-08-09] MEDS: ASPIRIN 81 MG ENTERIC COATED PO SCH (08:56)
[2017-08-09] MEDS ORDERED: ASPIRIN 325 MG TAB PO ONE (09:00)
[2017-08-09 09:54] LABS: CREATINE KINASE 31 IU/L (29-168)
[2017-08-09] MEDS ORDERED: HYDROCODONE/APAP 10MG-325MG TAB PO PRN ×2 (14:45→15:00)
[2017-08-09] MEDS ORDERED: METHYLPREDNISOLONE SOD SUCC 125 MG/2ML VIAL IV ONE (15:00)
[2017-08-09] MEDS ORDERED: PROMETHAZINE 12.5MG/ NACL 0.9% 12.5 MG/50 ML BAG IV ONE (15:00)
[2017-08-09] MEDS ORDERED: VALPROATE SOD INJ 500 MG in SODIUM CHLORIDE 0.9% 100 ML 100 ML IV SCH (18:45)
[2017-08-09] MEDS ORDERED: METHYLPREDNISOLONE SOD SUCC 125 MG/2ML VIAL IV NR (21:30)
[2017-08-09] MEDS ORDERED: PROMETHAZINE 12.5MG/ NACL 0.9% 12.5 MG/50 ML BAG IV NR (21:30)
[2017-08-10] VITALS: BP 135/62
[2017-08-10 04:00] VITALS: BP 103/52
[2017-08-10 07:30] VITALS: BP 143/94
[2017-08-10 08:00] VITALS: BP 143/94
[2017-08-10] MEDS: ASPIRIN 81 MG ENTERIC COATED PO SCH (09:00)
--- NOTE | 2017-08-10 12:07 | Cardiology Report ---
DATE OF STUDY: August 10, 2017 EXERCISE TREADMILL STRESS TEST INDICATIONS FOR STUDY: A 72-year-old lady with history of hypertension, who presents with chest pain and has ruled out for ND with serial cardiac enzymes. This is for ischemic risk stratification. TECHNICAL DETAILS: After the risks and benefits, pros and cons of today's exercise treadmill stress test were explained, the patient agreed to proceed. She was brought down to the stress lab where 12-lead EKG monitoring and blood pressure monitoring were obtained. She exercised on a Mejia protocol for a total duration of 4 minutes 1 second, terminating in stage II of the protocol. Resting heart rate went from a baseline of 88 beats per minute to a maximum of 138 beats per minute, above our target heart rate of 126 beats per minute. The blood pressure went from a baseline of 116/84 up to a maximum of 165/51, which is an appropriate blood pressure response. Protocol was terminated due to achievement of target heart rate and fatigue. Underlying EKG revealed normal sinus rhythm, normal axis, and no ST-T-wave changes. At peak exercise, there were no significant ST-T-wave changes and there were no ischemic symptoms. CONCLUSIONS 1. Negative exercise treadmill stress test. 2. Overall findings of the stress test are compatible with low-risk study. 3. Findings of the stress test were explained to the patient including limitations. Job#: [id number]
--- NOTE | 2017-08-10 13:40 | Discharge Summary ---
PRIMARY CARE DOCTOR: Dr. Sherwin Zhong FINAL DIAGNOSIS: Status migrainosus. SECONDARY DIAGNOSES 1. Benign left frontal arachnoid cyst. 2. Noncardiac chest pain. CONSULTANTS: 1. Dr. Griffin, cardiology. 2. Dr. Sanders, neurology. PROCEDURES/STUDIES PERFORMED: Echocardiogram which was benign. Stress test was benign. MRI of the brain, carotid ultrasound which was benign. HISTORY: Per [facility] and P. HOSPITAL COURSE: Patient was admitted. Patient was diagnosed by neurology with status migrainosus. She received the cocktail of Phenergan, Solu-Medrol and valproic acid twice and now her chest pain is much better. Her troponins are negative. She underwent a stress test which was benign. Incidentally patient was found to have a left frontal arachnoid cyst. The patient was seen and examined today. CONDITION ON DISCHARGE: Stable. DISCHARGE MEDICATIONS: Please see medication reconciliation form. MILI VERNON M.D. Job#: [id number] DG cc:SHERWIN ZHONG MD
== END 2017-08-10 13:57 | disposition home or self-care (01) | DRG 103 ==
LOC: MED/SURG2 12:39
PROVIDERS: ADMIT Internal Medicine; ATTEND Internal Medicine
DX: G43.901 Migraine, unspecified, not intractable, with status migrainosus (principal); I10 Essential (primary) hypertension; G93.0 Cerebral cysts; R07.89 Other chest pain; K21.9 Gastro-esophageal reflux disease without esophagitis; E66.9 Obesity, unspecified; Z68.31 Body mass index [BMI] 31.0-31.9, adult; R73.9 Hyperglycemia, unspecified
CPT/HCPCS: 36415; 70551; 80053; 80061; 82550; 82553; 83036; 83735; 84443; 84484; 85025; 85610; 93005; 93017; 93306; 93880; 97139; J2550; J2930; J7050

== ENCOUNTER 2020-09-29 16:59 | Emergency (ER) | payer MEDICARE ==
[~2020-09-29] VITALS: Ht 170.2 cm; Wt 85.3 kg
[2020-09-29] MEDS ORDERED: TETRACYCLINE H250 MG PO (17:24)
== END 2020-09-29 17:43 | disposition home or self-care (01) ==
LOC: FSED 17:15
DX: K12.0 Recurrent oral aphthae (principal); K14.6 Glossodynia; I10 Essential (primary) hypertension; E11.9 Type 2 diabetes mellitus without complications; K21.9 Gastro-esophageal reflux disease without esophagitis
CPT/HCPCS: 99282

== ENCOUNTER 2020-10-15 19:56 | Emergency (ER) | payer MEDICARE ==
[~2020-10-15] VITALS: Ht 170.2 cm; Wt 85.3 kg
[~2020-10-15 19:56] MED LIST changes: +TETRACYCLINE H250 MG PO
[2020-10-15] MEDS ORDERED: ONDANSETRON HCL INJ 2MG/ML 2ML 2 MG/ML VIAL IV STA ×2 (20:25→22:15)
[2020-10-15] MEDS ORDERED: FAMOTIDINE 20 MG/2 ML VIAL IV STA (20:25)
[2020-10-15] MEDS ORDERED: SODIUM CHLORIDE 0.9% 1000ML 1,000 ML IV STA (20:25)
[2020-10-15] MEDS ORDERED: SODIUM CHLORIDE 0.9% 50ML 50 ML ONE (20:50)
[2020-10-15] MEDS ORDERED: IOPAMIDOL 370 MG/ML 200 ML INFUS..BTL INJ ONE (20:50)
[2020-10-15] MEDS ORDERED: ONDANSETRON HCL INJ 2MG/ML 2ML 2 MG/ML VIAL ONE ×3 (21:01→22:31)
[2020-10-15] MEDS ORDERED: SODIUM CHLORIDE 0.9% 1000ML 1,000 ML ONE (21:02)
[2020-10-15] MEDS ORDERED: FAMOTIDINE 20 MG/2 ML VIAL IV ONE (21:02)
[2020-10-15] MEDS ORDERED: MORPHINE SULFATE INJ 4 MG/ML INJ 1ML IV STA (22:15)
[2020-10-15] MEDS ORDERED: KETOROLAC TROMETHAMINE 30 MG/ML VIAL IV STA (22:25)
[2020-10-15] MEDS ORDERED: MORPHINE SULFATE INJ 4 MG/ML INJ 1ML ONE (22:31)
[2020-10-15 22:43] VITALS: BP 112/70
== END 2020-10-15 22:45 | disposition home or self-care (01) ==
LOC: FSED 20:05
DX: R10.13 Epigastric pain (principal); R11.2 Nausea with vomiting, unspecified; R19.7 Diarrhea, unspecified; I10 Essential (primary) hypertension; E11.9 Type 2 diabetes mellitus without complications; K21.9 Gastro-esophageal reflux disease without esophagitis
CPT/HCPCS: 74177; 80048; 80076; 81003; 84484; 85025; 93005; 99284; J1885; J2270; J2405; J7030; Q9967

== ENCOUNTER 2020-10-17 06:21 | Inpatient (IN) | payer MEDICARE ==
[~2020-10-17] VITALS: Ht 170.2 cm; Wt 85.3 kg
[2020-10-17] MEDS: POTASSIUM CHLORIDE 20MEQ/100ML 100 ML IV SCH ×2 (04:00→22:00)
[2020-10-17] MEDS ORDERED: ONDANSETRON HCL INJ 2MG/ML 2ML 2 MG/ML VIAL IV STA (06:26)
[2020-10-17] MEDS: SODIUM CHLORIDE 0.9% 1000ML 1,000 ML IV SCH ×2 (06:30→16:53)
[2020-10-17 07:09] LABS: BASOPHILS % 0.2 % (0.0-1.0); EOSINOPHILS # (AUTO) 0.1 (0.0-0.4); EOSINOPHILS % 1.4 % (0.0-6.0); HEMATOCRIT 37.8 % (34.2-44.1); HEMOGLOBIN 13.1 g/dL (12.0-16.0); LYMPHOCYTES # (AUTO) 1.3 (1.0-3.2); LYMPHOCYTES % 13.5 % (18.0-39.1); MEAN CORPUSCULAR HEMOGLOBIN 31.3 pg (28-32); MEAN CORPUSCULAR HGB CONC 34.7 g/dL (31-35); MEAN CORPUSCULAR VOLUME 90.2 fL (81-99); MONOCYTES # (AUTO) 0.9 (0.2-0.8); MONOCYTES % 10.1 % (4.4-11.3); NEUTROPHILS % 74.5 % (38.7-80.0); PLATELET COUNT 202 x10e3/uL (140-360); RED BLOOD COUNT 4.19 x10e6/uL (3.6-5.1); RED CELL DISTRIBUTION WIDTH 13.2 % (11.7-14.4)
[2020-10-17 07:34] LABS: ALANINE AMINOTRANSFERASE 12 IU/L (0-55); ALBUMIN 3.6 g/dL (3.5-5.0); ALBUMIN/GLOBULIN RATIO 1.1 (0.8-2.0); ALKALINE PHOSPHATASE 92 IU/L (40-150); ANION GAP 15.9 mmol/L (8-16); BLOOD UREA NITROGEN 10 mg/dL (7-26); BUN/CREATININE RATIO 12 (6-25); CALCIUM 8.9 mg/dL (8.4-10.2); CARBON DIOXIDE 18 mmol/L (22-29); CHLORIDE 108 mmol/L (98-107); CREATINE KINASE 21 IU/L (29-168); CREATININE, SERUM 0.82 mg/dL (0.57-1.11); EST GLOMERULAR FILTRATION RATE 68 ML/MIN (60-); GLUCOSE 142 mg/dL (74-118); SODIUM 139 mmol/L (136-145)
[2020-10-17 07:43] LABS: POTASSIUM 2.9 mmol/L (3.5-5.1)
[2020-10-17] MEDS ORDERED: POTASSIUM CHLORIDE 20 MEQ TAB CR PO STA (07:43)
[2020-10-17] MEDS ORDERED: POTASSIUM CHLORIDE 10MEQ/100ML 200 ML IV ONE (07:45)
[2020-10-17] MEDS ORDERED: SODIUM CHLORIDE 0.9% 50ML 0 ML ONE (08:05)
[2020-10-17] MEDS ORDERED: IOPAMIDOL 370 MG/ML 200 ML INFUS..BTL INJ ONE (08:06)
[2020-10-17] MEDS ORDERED: DICYCLOMINE HCL 20 MG/2 ML VIAL IM ONE (09:00)
[2020-10-17] MEDS ORDERED: METRONIDAZOLE 500MG/NS 100ML 100 ML IV SCH (09:00)
[2020-10-17] MEDS ORDERED: POTASSIUM CHLORIDE 20MEQ/100ML 100 ML ONE (09:19)
[2020-10-17 09:50] LABS: CLARITY,URINE HAZY (CLEAR); COLOR,URINE YELLOW (YELLOW); LEUKOCYTE ESTERASE ,URINE SMALL (NEGATIVE); NITRITE,URINE NEGATIVE (NEGATIVE); PROTEIN,URINE DIPSTICK 1+ (NEGATIVE)
[2020-10-17 09:51] LABS: KETONES,URINE 2+ (NEGATIVE); URINE UROBILINOGEN 0.2 mg/dL (0.2 - 1)
[2020-10-17 09:52] LABS: AMORPHOUS SEDIMENT,URINE FEW (FEW); BACTERIA,URINE MODERATE /HPF; EPITHELIAL CELLS,URINE MODERATE /LPF; HYALINE CASTS 0-1 (0-1)
[2020-10-17] MEDS ORDERED: METRONIDAZOLE 500MG/NS 100ML IV SCH (12:00)
[2020-10-17] MEDS: MORPHINE SULFATE INJ 2 MG/ML SYR IV PRN (16:53)
[2020-10-17] MEDS: ONDANSETRON HCL INJ 2MG/ML 2ML 2 MG/ML VIAL IV PRN (16:53)
[2020-10-17] MEDS: METRONIDAZOLE 500MG/NS 100ML 100 ML IV SCH (16:53)
[2020-10-17 18:42] VITALS: BP 115/63
[2020-10-17 20:32] VITALS: BP 125/71
[2020-10-17] MEDS: FAMOTIDINE 20 MG/2 ML VIAL IV SCH (21:15)
[2020-10-17 22:28] VITALS: BP 125/71
[2020-10-18] VITALS (8 sets, daily range): BP systolic 97–126; BP diastolic 51–71
[2020-10-18] MEDS: METRONIDAZOLE 500MG/NS 100ML 100 ML IV SCH ×3 (01:00→16:56)
[2020-10-18] MEDS: MORPHINE SULFATE INJ 2 MG/ML SYR IV PRN (02:20)
[2020-10-18] MEDS: SODIUM CHLORIDE 0.9% 1000ML 1,000 ML IV SCH ×3 (02:30→22:13)
[2020-10-18] MEDS ORDERED: POTASSIUM CHLORIDE 20MEQ/100ML 100 ML ONE (05:17)
[2020-10-18 06:36] LABS: BASOPHILS % 0.3 % (0.0-1.0); EOSINOPHILS # (AUTO) 0.3 (0.0-0.4); EOSINOPHILS % 3.4 % (0.0-6.0); HEMATOCRIT 33.8 % (34.2-44.1); HEMOGLOBIN 11.5 g/dL (12.0-16.0); LYMPHOCYTES # (AUTO) 1.2 (1.0-3.2); LYMPHOCYTES % 14.7 % (18.0-39.1); MEAN CORPUSCULAR HEMOGLOBIN 31.2 pg (28-32); MEAN CORPUSCULAR VOLUME 91.6 fL (81-99); MONOCYTES # (AUTO) 0.8 (0.2-0.8); MONOCYTES % 9.6 % (4.4-11.3); NEUTROPHILS # (AUTO) 5.7 (2.1-6.9); NEUTROPHILS % 71.7 % (38.7-80.0); PLATELET COUNT 165 x10e3/uL (140-360); RED BLOOD COUNT 3.69 x10e6/uL (3.6-5.1); RED CELL DISTRIBUTION WIDTH 13.4 % (11.7-14.4)
[2020-10-18 06:57] LABS: ALBUMIN 2.9 g/dL (3.5-5.0); ANION GAP 10.4 mmol/L (8-16); CALCIUM 8.4 mg/dL (8.4-10.2); CREATININE, SERUM 0.68 mg/dL (0.57-1.11); POTASSIUM 3.4 mmol/L (3.5-5.1)
[2020-10-18] MEDS: FAMOTIDINE 20 MG/2 ML VIAL IV SCH ×2 (08:53→16:56)
[2020-10-18] MEDS ORDERED: POTASSIUM CHLORIDE 20MEQ/100ML 300 ML IV ONE (13:30)
[2020-10-18] MEDS: KCL 20 MEQ PACKET/ ORAL SOLN PO SCH ×2 (14:16→16:56)
[2020-10-18] MEDS: ONDANSETRON HCL INJ 2MG/ML 2ML 2 MG/ML VIAL IV PRN (15:57)
[2020-10-18] MEDS: ACETAMINOPHEN 325 MG TAB PO PRN (22:12)
[2020-10-19] VITALS: BP 104/54
[2020-10-19] MEDS: METRONIDAZOLE 500MG/NS 100ML 100 ML IV SCH ×2 (01:16→09:09)
[2020-10-19 07:16] LABS: ANION GAP 9.5 mmol/L (8-16); CALCIUM 8.3 mg/dL (8.4-10.2); CREATININE, SERUM 0.67 mg/dL (0.57-1.11); MAGNESIUM 1.5 MG/DL (1.3-2.1); POTASSIUM 3.5 mmol/L (3.5-5.1)
[2020-10-19 08:01] VITALS: BP 101/62
[2020-10-19 08:27] VITALS: BP 101/62
[2020-10-19] MEDS: FAMOTIDINE 20 MG/2 ML VIAL IV SCH ×2 (09:09→17:18)
[2020-10-19] MEDS ORDERED: MAGNESIUM SULFATE 2GM/50ML 50 ML IV ONE (11:00)
[2020-10-19 11:52] VITALS: BP 113/62
[2020-10-19] MEDS: LACTATED RINGER'S 1,000 ML INJ SCH (12:43)
[2020-10-19] MEDS ORDERED: LOPERAMIDE HCL 2 MG CAP PO PRN (14:00)
[2020-10-19] MEDS ORDERED: ASPIRIN81 MG PO (15:16)
[2020-10-19] MEDS ORDERED: LOSARTAN POTAS100 MG PO (15:16)
[2020-10-19 15:46] VITALS: BP 140/68
[2020-10-19] MEDS: ASPIRIN 81 MG CHEW TAB PO SCH (16:40)
[2020-10-19] MEDS: LOSARTAN POTASSIUM 100 MG TAB PO SCH (16:40)
[2020-10-19] MEDS: GUAIFENESIN 600 MG TAB PO SCH (17:18)
[2020-10-19] MEDS: CHOLESTYRAMINE 4 GM PACKET PO SCH (17:18)
[2020-10-19 20:00] VITALS: BP 98/64
[2020-10-19] MEDS: ACETAMINOPHEN 325 MG TAB PO PRN (21:24)
[2020-10-20] VITALS (7 sets, daily range): BP systolic 105–119; BP diastolic 57–69
[2020-10-20] MEDS: LACTATED RINGER'S 1,000 ML INJ SCH ×2 (00:20→14:14)
[2020-10-20] MEDS: ONDANSETRON HCL INJ 2MG/ML 2ML 2 MG/ML VIAL IV PRN (03:30)
[2020-10-20 05:18] LABS: BASOPHILS % 0.2 % (0.0-1.0); EOSINOPHILS # (AUTO) 0.2 (0.0-0.4); EOSINOPHILS % 4.1 % (0.0-6.0); HEMATOCRIT 31.1 % (34.2-44.1); HEMOGLOBIN 10.6 g/dL (12.0-16.0); LYMPHOCYTES # (AUTO) 1.6 (1.0-3.2); MEAN CORPUSCULAR HEMOGLOBIN 31.2 pg (28-32); MEAN CORPUSCULAR HGB CONC 34.1 g/dL (31-35); MEAN CORPUSCULAR VOLUME 91.5 fL (81-99); MONOCYTES # (AUTO) 0.5 (0.2-0.8); MONOCYTES % 8.8 % (4.4-11.3); NEUTROPHILS # (AUTO) 3.1 (2.1-6.9); NEUTROPHILS % 57.5 % (38.7-80.0); PLATELET COUNT 174 x10e3/uL (140-360); RED CELL DISTRIBUTION WIDTH 13.3 % (11.7-14.4)
[2020-10-20 05:46] LABS: ANION GAP 8.2 mmol/L (8-16); CALCIUM 8.5 mg/dL (8.4-10.2); CREATININE, SERUM 0.68 mg/dL (0.57-1.11); MAGNESIUM 1.8 MG/DL (1.3-2.1); POTASSIUM 3.2 mmol/L (3.5-5.1)
[2020-10-20] MEDS: ASPIRIN 81 MG CHEW TAB PO SCH (08:10)
[2020-10-20] MEDS: FAMOTIDINE 20 MG/2 ML VIAL IV SCH ×2 (08:13→16:11)
[2020-10-20] MEDS: GUAIFENESIN 600 MG TAB PO SCH ×2 (08:56→17:03)
[2020-10-20] MEDS: LOSARTAN POTASSIUM 100 MG TAB PO SCH (08:56)
[2020-10-20] MEDS ORDERED: KCL 20 MEQ PACKET/ ORAL SOLN PO ONE (09:00)
[2020-10-20] MEDS: CHOLESTYRAMINE 4 GM PACKET PO SCH (10:55)
[2020-10-20 12:04] LABS: EOSINOPHILS % (MANUAL) 3 % (0-7); LYMPHOCYTES % (MANUAL) 27 % (19-48); MONOCYTES % (MANUAL) 6 % (3.4-9.0); NEUTROPHILS % (MANUAL) 61 % (40-74)
[2020-10-20 12:05] LABS: HYPOCHROMASIA SLIGHT; PLATELET ESTIMATE ADEQUATE; RBC MORPHOLOGY COMMENT NORMAL
[2020-10-20] MEDS ORDERED: CHOLESTYRAMINE 4 GM PACKET PO PRN (14:30)
[2020-10-20] MEDS ORDERED: CYANOCOBALAMIN INJ 1,000 MCG/ML VIAL IM ONE (15:00)
[2020-10-20] MEDS ORDERED: CYANOCOBALAMIN 1,000 MCG TAB PO ONE (17:00)
[2020-10-21] VITALS (7 sets, daily range): BP systolic 115–141; BP diastolic 60–76
[2020-10-21] MEDS ORDERED: METOCLOPRAMIDE HCL 10 MG/2ML VIAL IV STA (00:18)
[2020-10-21] MEDS ORDERED: DICYCLOMINE HCL 20 MG TAB PO STA (00:20)
[2020-10-21] MEDS: ACETAMINOPHEN 325 MG TAB PO PRN (02:50)
[2020-10-21] MEDS: LACTATED RINGER'S 1,000 ML INJ SCH (02:51)
[2020-10-21] MEDS: METOCLOPRAMIDE HCL 10 MG/2ML VIAL IV SCH ×4 (05:25→23:58)
[2020-10-21] MEDS: ONDANSETRON HCL INJ 2MG/ML 2ML 2 MG/ML VIAL IV PRN (05:50)
[2020-10-21 06:49] LABS: ANION GAP 10.5 mmol/L (8-16); CALCIUM 8.8 mg/dL (8.4-10.2); CREATININE, SERUM 0.68 mg/dL (0.57-1.11); MAGNESIUM 1.8 MG/DL (1.3-2.1); POTASSIUM 3.5 mmol/L (3.5-5.1)
[2020-10-21] MEDS: ASPIRIN 81 MG CHEW TAB PO SCH (08:23)
[2020-10-21] MEDS: FAMOTIDINE 20 MG/2 ML VIAL IV SCH (08:23)
[2020-10-21] MEDS: LOSARTAN POTASSIUM 100 MG TAB PO SCH (08:24)
[2020-10-21] MEDS: DICYCLOMINE HCL 10 MG CAP PO SCH ×3 (08:24→20:03)
[2020-10-21] MEDS: GUAIFENESIN 600 MG TAB PO SCH ×2 (08:24→16:26)
[2020-10-21] MEDS: CYANOCOBALAMIN 1,000 MCG TAB PO SCH (15:21)
[2020-10-21 18:50] LABS: WBC,FECAL (FECAL LACTOFERRIN) NEGATIVE (NEGATIVE)
[2020-10-22] VITALS: BP 143/80
[2020-10-22 04:00] VITALS: BP 124/56
[2020-10-22] MEDS: METOCLOPRAMIDE HCL 10 MG/2ML VIAL IV SCH ×2 (05:19→11:22)
[2020-10-22 08:34] VITALS: BP 132/68
[2020-10-22 09:08] VITALS: BP 132/68
[2020-10-22] MEDS: ASPIRIN 81 MG CHEW TAB PO SCH (09:32)
[2020-10-22] MEDS: LOSARTAN POTASSIUM 100 MG TAB PO SCH (09:32)
[2020-10-22] MEDS: GUAIFENESIN 600 MG TAB PO SCH ×2 (09:32→16:14)
[2020-10-22] MEDS: CYANOCOBALAMIN 1,000 MCG TAB PO SCH (09:32)
[2020-10-22] MEDS: DICYCLOMINE HCL 10 MG CAP PO SCH ×2 (09:32→14:34)
[2020-10-22 12:14] VITALS: BP 130/57
[2020-10-22] MEDS ORDERED: REGLAN5 MG PO (14:12)
[2020-10-22] MEDS ORDERED: PANTOPRAZOLE SO40 MG PO (14:13)
[2020-10-22] MEDS ORDERED: DICYCLOMINE HCL10 MG PO (14:13)
[2020-10-22 14:32] LABS: C DIFFICILE TOXIN A&B AMP PROB NEGATIVE (NEGATIVE)
[2020-10-22] MEDS ORDERED: ONDANSETRON HCL 4 MG ORAL DISINTEGRATING TAB PO PRN (15:15)
[2020-10-22 15:50] VITALS: BP 138/61
== END 2020-10-22 16:46 | disposition home or self-care (01) | DRG 392 ==
LOC: ER 06:39 → ERHOLD 09:19 → MED/SURG3 18:21 → OBSVTOIN 10-18 19:52
PROVIDERS: ADMIT Internal Medicine; ATTEND Internal Medicine
DX: A08.4 Viral intestinal infection, unspecified (principal); E86.0 Dehydration; E87.6 Hypokalemia; I10 Essential (primary) hypertension; E11.43 Type 2 diabetes mellitus with diabetic autonomic (poly)neuropathy; K31.84 Gastroparesis; K21.9 Gastro-esophageal reflux disease without esophagitis; R51.9 Headache, unspecified; K58.9 Irritable bowel syndrome, unspecified; Z90.49 Acquired absence of other specified parts of digestive tract; Z88.5 Allergy status to narcotic agent; Z82.49 Family history of ischemic heart disease and other diseases of the circulatory system; Z20.822 Contact with and (suspected) exposure to COVID-19; Z79.82 Long term (current) use of aspirin
CPT/HCPCS: 36415; 80048; 80053; 81001; 82550; 82553; 82948; 83630; 83690; 83735; 83880; 84132; 84484; 85025; 87086; 87493; 99284; G0378; J0500; J2270; J2405; J2765; J3420; J3475; J3480; J7030; J7121; Q9967; U0002

== ENCOUNTER 2022-03-10 12:19 | Inpatient (IN) | payer MEDICARE ==
[~2022-03-10] VITALS: Ht 170.2 cm; Wt 87.5 kg
[~2022-03-10 12:19] MED LIST changes: +ASPIRIN81 MG PO; +DICYCLOMINE HCL10 MG PO; +LOSARTAN POTAS100 MG PO; +PANTOPRAZOLE SO40 MG PO; +REGLAN5 MG PO
[2022-03-10] MEDS ORDERED: ASPIRIN 325 MG TAB PO ONE (12:45)
[2022-03-10] MEDS ORDERED: FAMOTIDINE 20 MG/2 ML VIAL IV ONE ×2 (12:45→14:02)
[2022-03-10] MEDS ORDERED: IOPAMIDOL 370 MG/ML 100 ML INFUS..BTL INJ ONE (13:26)
[2022-03-10] MEDS ORDERED: ONDANSETRON HCL INJ 2MG/ML 2ML 2 MG/ML VIAL IV STA (13:51)
[2022-03-10] MEDS ORDERED: ONDANSETRON HCL INJ 2MG/ML 2ML 2 MG/ML VIAL ONE (14:01)
[2022-03-10] MEDS ORDERED: ASPIRIN 325 MG TAB ONE (14:01)
[2022-03-10] MEDS ORDERED: SODIUM CHLORIDE FLUSH 10 ML SYR INJ PRN (14:15)
[2022-03-10] MEDS ORDERED: CLONIDINE HCL 0.1 MG TAB PO PRN (14:30)
[2022-03-10] MEDS ORDERED: ENALAPRILAT IV INJ 1.25 MG/ML VIAL IV PRN (14:30)
[2022-03-10] MEDS ORDERED: DIPHENHYDRAMINE HCL INJ 50 MG/ML VIAL IV PRN (14:30)
[2022-03-10] MEDS ORDERED: ONDANSETRON HCL INJ 2MG/ML 2ML 2 MG/ML VIAL IV PRN (14:30)
[2022-03-10 16:28] VITALS: BP 141/77
[2022-03-10] MEDS ORDERED: FAMOTIDINE 20 MG TAB PO SCH (16:30)
[2022-03-10] MEDS ORDERED: CEFTRIAXONE 1 GM VIAL IV ONE (16:30)
[2022-03-10 16:43] VITALS: BP 141/77
[2022-03-10 16:49] VITALS: BP 141/77
[2022-03-10] MEDS: PANTOPRAZOLE SOD 40 MG TABEC PO SCH (16:59)
[2022-03-10] MEDS ORDERED: SODIUM CHLORIDE 0.9% 250ML 250 ML ONE (17:06)
[2022-03-10 17:38] LABS: CREATINE KINASE MB 0.6 ng/mL (0-5.0)
[2022-03-10] MEDS: ACETAMINOPHEN 325 MG TAB PO PRN (18:48)
[2022-03-10] MEDS: ALBUTEROL/IPRATROPIUM 3 ML NEB NEB SCH ×2 (19:25→22:00)
[2022-03-10 20:00] VITALS: BP 122/61
[2022-03-10] MEDS: FAMOTIDINE 20 MG TAB PO SCH (20:40)
[2022-03-11] VITALS (7 sets, daily range): BP systolic 104–152; BP diastolic 51–73
[2022-03-11 05:16] LABS: BASOPHILS % 0.4 % (0.0-1.0); EOSINOPHILS # (AUTO) 0.2 (0.0-0.4); EOSINOPHILS % 2.5 % (0.0-6.0); HEMOGLOBIN 12.1 g/dL (12.0-16.0); LYMPHOCYTES % 29.7 % (18.0-39.1); MEAN CORPUSCULAR HEMOGLOBIN 30.9 pg (28-32); MEAN CORPUSCULAR HGB CONC 33.6 g/dL (31-35); MEAN CORPUSCULAR VOLUME 91.8 fL (81-99); MONOCYTES # (AUTO) 0.8 (0.2-0.8); MONOCYTES % 11.4 % (4.4-11.3); NEUTROPHILS # (AUTO) 3.7 (2.1-6.9); NEUTROPHILS % 55.4 % (38.7-80.0); PLATELET COUNT 160 x10e3/uL (140-360); RED BLOOD COUNT 3.92 x10e6/uL (3.6-5.1); RED CELL DISTRIBUTION WIDTH 13.7 % (11.7-14.4)
[2022-03-11 05:48] LABS: ALBUMIN 2.9 g/dL (3.5-5.0); ALBUMIN/GLOBULIN RATIO 1.1 (0.8-2.0); ANION GAP 12.1 mmol/L (8-16); CALCIUM 8.8 mg/dL (8.4-10.2); CREATININE, SERUM 0.84 mg/dL (0.57-1.11); POTASSIUM 4.1 mmol/L (3.5-5.1)
[2022-03-11 06:11] LABS: THYROID STIMULATING HORMONE 2.294 uIU/mL (0.350-4.940)
[2022-03-11 06:17] LABS: CHOL/HDL RATIO 3.9 (3.0-3.6)
[2022-03-11] MEDS: ALBUTEROL/IPRATROPIUM 3 ML NEB NEB SCH ×5 (06:20→22:30)
[2022-03-11] MEDS: PANTOPRAZOLE SOD 40 MG TABEC PO SCH ×3 (07:30→21:15)
[2022-03-11] MEDS: FAMOTIDINE 20 MG TAB PO SCH ×2 (09:00→21:18)
[2022-03-11] MEDS: ENOXAPARIN SOD INJ 40 MG/0.4 ML SYR SC SCH (09:18)
[2022-03-11] MEDS ORDERED: REGADENOSON 0.4 MG/5 ML SYR IV ONE (09:51)
[2022-03-11] MEDS: ASPIRIN 325 MG TAB EC PO SCH (11:59)
[2022-03-11] MEDS: LOSARTAN POTASSIUM 100 MG TAB PO SCH (12:02)
[2022-03-11] MEDS: ACETAMINOPHEN 325 MG TAB PO PRN (15:14)
[2022-03-11 15:51] LABS: CREATINE KINASE MB 0.4 ng/mL (0-5.0)
[2022-03-11] MEDS: ZOLPIDEM TARTRATE 5 MG TAB PO PRN (21:15)
[2022-03-12] VITALS (7 sets, daily range): BP systolic 91–137; BP diastolic 49–76
[2022-03-12] MEDS: ALBUTEROL/IPRATROPIUM 3 ML NEB NEB SCH ×5 (06:00→22:55)
[2022-03-12] MEDS ORDERED: CYANOCOBALAMIN INJ 1,000 MCG/ML VIAL IM SCH (08:00)
[2022-03-12] MEDS: ASPIRIN 325 MG TAB EC PO SCH (09:45)
[2022-03-12] MEDS: ENOXAPARIN SOD INJ 40 MG/0.4 ML SYR SC SCH (09:46)
[2022-03-12] MEDS: LOSARTAN POTASSIUM 100 MG TAB PO SCH (09:46)
[2022-03-12] MEDS: FAMOTIDINE 20 MG TAB PO SCH ×2 (09:46→20:49)
[2022-03-12] MEDS: MECLIZINE HCL 12.5 MG TAB PO PRN (11:15)
[2022-03-12] MEDS ORDERED: IOPAMIDOL 370 MG/ML 100 ML INFUS..BTL INJ ONE (14:39)
[2022-03-12] MEDS: PANTOPRAZOLE SOD 40 MG TABEC PO SCH ×2 (16:24→20:46)
[2022-03-12] MEDS: ACETAMINOPHEN 325 MG TAB PO PRN (16:25)
[2022-03-12] MEDS: ZOLPIDEM TARTRATE 5 MG TAB PO PRN (20:46)
[2022-03-13] MEDS: ALBUTEROL/IPRATROPIUM 3 ML NEB NEB SCH ×3 (06:02→15:10)
[2022-03-13 08:43] VITALS: BP 143/73
[2022-03-13] MEDS: ASPIRIN 325 MG TAB EC PO SCH (09:48)
[2022-03-13] MEDS: FAMOTIDINE 20 MG TAB PO SCH (09:48)
[2022-03-13] MEDS: PANTOPRAZOLE SOD 40 MG TABEC PO SCH (09:48)
[2022-03-13] MEDS: MECLIZINE HCL 12.5 MG TAB PO PRN (09:48)
[2022-03-13] MEDS: LOSARTAN POTASSIUM 100 MG TAB PO SCH (09:48)
[2022-03-13] MEDS: ENOXAPARIN SOD INJ 40 MG/0.4 ML SYR SC SCH (09:50)
[2022-03-13 12:23] VITALS: BP 121/61
[2022-03-13 12:52] VITALS: BP 121/61
[2022-03-13] MEDS ORDERED: Meclizine Hcl PO (14:23)
== END 2022-03-13 15:34 | disposition home or self-care (01) | DRG 313 ==
LOC: FSED 12:22 → ERHOLD 14:14 → MED/SURG 16:01 → OBSVTOIN 03-12 14:41
PROVIDERS: ADMIT Internal Medicine; ATTEND Internal Medicine
DX: R07.9 Chest pain, unspecified (principal); I10 Essential (primary) hypertension; E11.9 Type 2 diabetes mellitus without complications; K21.9 Gastro-esophageal reflux disease without esophagitis; H66.90 Otitis media, unspecified, unspecified ear; J40 Bronchitis, not specified as acute or chronic; R20.0 Anesthesia of skin; Z96.651 Presence of right artificial knee joint; Z90.49 Acquired absence of other specified parts of digestive tract; Z90.710 Acquired absence of both cervix and uterus; Z88.5 Allergy status to narcotic agent; Z82.49 Family history of ischemic heart disease and other diseases of the circulatory system; Z20.822 Contact with and (suspected) exposure to COVID-19; R42 Dizziness and giddiness; I73.9 Peripheral vascular disease, unspecified
CPT/HCPCS: 36415; 70450; 70491; 70551; 71260; 76536; 78452; 80053; 80061; 82550; 82553; 82948; 83880; 84443; 84484; 85025; 85379; 93005; 93017; 93306; 93880; 93970; 94640; 94799; 99284; A9502; G0378; J0696; J1650; J2405; J3420; J7050; Q9967